=== PATIENT | female | born 1995 | race Caucasian/White ===

== ENCOUNTER 2017-02-07 06:36 | Emergency (ER) | payer OTHER ==
[~2017-02-07 06:36] MED LIST: APAP/HYDROCODON1 T13 PO; COL100 PO
[2017-02-07 08:42] LABS: UA SPECIFIC GRAVITY >=1.030 (1.005-1.035); microscopic required? YES; urine erythrocyte 2+ (NEGATIVE)
[2017-02-07 10:35] VITALS: BP 131/74
== END 2017-02-07 10:35 | disposition home or self-care (01) ==
LOC: ED 06:36
PROVIDERS: Specialist
DX: N72 Inflammatory disease of cervix uteri (principal)
CPT/HCPCS: 87491; 87591; J0696

== ENCOUNTER 2017-11-17 17:40 | Emergency (ER) | payer SELFPAY ==
[~2017-11-17] VITALS: Ht 152.4 cm; Wt 61.2 kg
[2017-11-17 17:54] VITALS: Ht 152.4 cm; Wt 61.2 kg
[2017-11-17 19:41] VITALS: BP 110/69
== END 2017-11-17 19:41 | disposition home or self-care (01) ==
LOC: ED 17:40
DX: O26.891 Other specified pregnancy related conditions, first trimester (principal); R11.2 Nausea with vomiting, unspecified; R19.7 Diarrhea, unspecified; Z3A.00 Weeks of gestation of pregnancy not specified
CPT/HCPCS: Q0162

== ENCOUNTER 2017-11-20 20:40 | Inpatient (IN) | payer OTHER ==
[~2017-11-20] VITALS: Ht 152.4 cm; Wt 61.2 kg
[2017-11-20 20:54] VITALS: Ht 152.4 cm; Wt 61.2 kg
[2017-11-20 22:11] LABS: BASOPHIL % 0.3 % (0-2); PLATELET COUNT 309 x10^3mcL (130-400)
[2017-11-20 22:12] LABS: RED CELL DISTRIBUTION WIDTH 14.6 % (11.5-14.5)
[2017-11-20 22:15] LABS: microscopic required? YES; urine erythrocyte 1+ (NEGATIVE)
[2017-11-20 22:25] LABS: CALCIUM 9.2 mg/dL (8.5-10.1); CARBON DIOXIDE 23.6 mmol/L (21-32); CHLORIDE SERUM 98 mmol/L (98-107); CREATININE SERUM 0.6 mg/dL (0.6-1.0); GFR1 > 60 mL/min; GLUCOSE SERUM 91 mg/dL (74-106); POTASSIUM SERUM 3.3 mmol/L (3.5-5.1); SODIUM SERUM 134 mmol/L (136-145)
[2017-11-20 22:30] LABS: ALBUMIN 4.2 g/dL (3.4-5.0); ALKALINE PHOSPHATASE 83 U/L (46-116); ALT/SGPT 19 U/L (14-59); AST/SGOT 13 U/L (15-37); BILIRUBIN TOTAL 0.6 mg/dL (0.20-1.00)
[2017-11-20 22:46] LABS: TOTAL PROTEIN, SERUM 8.3 g/dL (6.4-8.2)
[2017-11-21 00:04] LABS: AMPHETAMINE QUAL UR NONE DETECTED (NEG <=1000)
[2017-11-21 00:23] VITALS: BP 118/66
[2017-11-21 03:42] LABS: CHOLESTEROL/HDL RATIO 3.4; MAGNESIUM 2.1 mg/dL (1.8-2.4); PHOSPHOROUS 4.1 mg/dL (2.5-4.9)
[2017-11-21 03:44] LABS: FREE T4 1.33 ng/dL (0.76-1.46); FREE THYROXINE INDEX 3.7 ug/dL (1.4-4.5); T3 TOTAL 1.22 ng/mL; T4(THYROXINE) 12.3 ug/dL (4.7-13.3)
[2017-11-21 05:48] VITALS: BP 97/49
[2017-11-21 06:26] LABS: BASOPHIL % 0.2 % (0-2); PLATELET COUNT 241 x10^3mcL (130-400); RED CELL DISTRIBUTION WIDTH 14.4 % (11.5-14.5)
[2017-11-21 06:45] LABS: CALCIUM 8.4 mg/dL (8.5-10.1); CARBON DIOXIDE 22.6 mmol/L (21-32); CHLORIDE SERUM 103 mmol/L (98-107); CREATININE SERUM 0.4 mg/dL (0.6-1.0); GFR1 > 60 mL/min; GLUCOSE SERUM 84 mg/dL (74-106); PHOSPHOROUS 4.5 mg/dL (2.5-4.9); POTASSIUM SERUM 4.1 mmol/L (3.5-5.1); SODIUM SERUM 136 mmol/L (136-145)
[2017-11-21 08:59] VITALS: BP 102/45
[2017-11-21 13:42] VITALS: BP 111/63
[2017-11-21 17:28] VITALS: BP 102/57
[2017-11-21 20:25] VITALS: BP 104/58
[2017-11-22 04:30] VITALS: BP 103/59
[2017-11-22 06:25] LABS: BASOPHIL % 0.3 % (0-2); PLATELET COUNT 250 x10^3mcL (130-400); RED CELL DISTRIBUTION WIDTH 14.2 % (11.5-14.5)
[2017-11-22 06:43] LABS: CALCIUM 8.5 mg/dL (8.5-10.1); CARBON DIOXIDE 24.6 mmol/L (21-32); CHLORIDE SERUM 104 mmol/L (98-107); CREATININE SERUM 0.5 mg/dL (0.6-1.0); GFR1 > 60 mL/min; GLUCOSE SERUM 84 mg/dL (74-106); PHOSPHOROUS 4.6 mg/dL (2.5-4.9); POTASSIUM SERUM 4.1 mmol/L (3.5-5.1); SODIUM SERUM 136 mmol/L (136-145)
[2017-11-22 08:38] VITALS: BP 113/56
[2017-11-22] MEDS ORDERED: VINATE M1 TAB PO (11:52)
[2017-11-22] MEDS ORDERED: CULTURELLE1 EACH PO (11:55)
[2017-11-22] MEDS ORDERED: KEFLEX500 M1 PO (11:55)
[2017-11-22 12:24] VITALS: BP 113/56
== END 2017-11-22 13:22 | disposition home or self-care (01) | DRG 566 ==
LOC: ED 20:40 → DU 23:17
PROVIDERS: Family Medicine; Specialist
DX: O21.1 Hyperemesis gravidarum with metabolic disturbance (principal); O23.41 Unspecified infection of urinary tract in pregnancy, first trimester; N39.0 Urinary tract infection, site not specified; D64.9 Anemia, unspecified; O99.011 Anemia complicating pregnancy, first trimester; Z3A.01 Less than 8 weeks gestation of pregnancy
CPT/HCPCS: 83880; 84439; J0696; J2405; J3480; J7030; Q0092